=== PATIENT | female | born 1960 | race Caucasian/White ===

== ENCOUNTER 2019-10-28 14:29 | Observation (INO) | payer OTHER, SELFPAY ==
--- NOTE | ~2019-10-28 | XR_ITS ---
EXAMINATION: XR foot RT min 3V DATE: 10/29/2019 18:03 INDICATION: Right foot pain. TECHNIQUE: 4 views of right foot were obtained. COMPARISON: None. FINDINGS: There is an oblique intra-articular fracture of base of fifth metatarsal with 2 mm displace ment. There is a dorsal exostosis at the neck of third metatarsal. There is mild osteoarthritis of ta lonavicular joint, first metatarsophalangeal joint, and second proximal interphalangeal joint. There is an enthesophyte at plantar aspect of calcaneal tuberosity. IMPRESSION: 1. Fracture of base of fifth metatarsal. Reviewed, dictated and finalized at location A.
--- NOTE | ~2019-10-28 | XR_ITS ---
EXAMINATION: XR ankle RT min 3V DATE: 10/29/2019 18:03 INDICATION: Right ankle pain. Fall. TECHNIQUE: 4 views of right ankle were obtained. COMPARISON: None. FINDINGS: There is an oblique intra-articular fracture of base of fifth metatarsal. There is mild ost eoarthritis of talonavicular joint. There is heterotopic ossification distal to medial malleolus, lik treasure from old injury. There is an enthesophyte at plantar aspect of calcaneal tuberosity. Ankle soft t issue swelling is noted. IMPRESSION: 1. Fracture of base of fifth metatarsal. Reviewed, dictated and finalized at location A.
--- NOTE | ~2019-10-28 | XR_ITS ---
EXAMINATION: XR surgery orthopedic DATE: 10/29/2019 17:17 INDICATION: Trimalleolar left ankle fracture. TECHNIQUE: 7 intraoperative fluoroscopic views of left ankle were obtained. I was not present. Fluoro scopy exposure time was 107 seconds. COMPARISON: Left ankle radiographs 10/28/2019 FINDINGS: There is an oblique fracture of distal fibula in near-anatomic alignment status post open r eduction internal fixation with semitubular plate and screws and interfragmentary screw. There is a t ransverse fracture of medial malleolus in near-anatomic alignment status post open reduction internal fixation with lag screw. There is a nondisplaced fracture of posterior malleolus. There is mild oste oarthritis of talonavicular joint. IMPRESSION: 1. Trimalleolar ankle fracture status post open reduction internal fixation of distal fibula and medi al malleolus. Reviewed, dictated and finalized at location A. IMPRESSION: 1. Trimalleolar ankle fracture status post open reduction internal fixation of distal fibula and medial malleolus.
--- NOTE | ~2019-10-28 | XR_ITS ---
XR ankle LT min 3V, XR foot LT min 3V 10/28/2019 15:11 Indication: Left foot and ankle pain after fall Procedure: 4 views left ankle and 4 views left foot Comparison: No prior studies for comparison. Findings: There is displaced trimalleolar fracture. Talar dome within normal limits. Prominent degene rative calcaneal enthesophyte. Mild osteoarthritis of the midfoot. The Lisfranc joint intact. Impression: 1: Displaced trimalleolar fracture. Reviewed, dictated and finalized at location B. Impression: 1: Displaced trimalleolar fracture. Impression: 1: Displaced trimalleolar fracture.
--- NOTE | ~2019-10-28 | XR_ITS ---
EXAMINATION: XR ankle LT 2V DATE: 10/28/2019 16:50 INDICATION: Left ankle fracture status post reduction. TECHNIQUE: 2 views of left ankle were obtained. COMPARISON: Left ankle radiographs at 2:57 PM FINDINGS: There is a transverse fracture of medial malleolus. The distal fracture fragment demonstrat es 3 mm lateral displacement. There is an oblique fracture of distal fibula. The distal fracture frag ment demonstrates 4 mm posterior displacement. There is a nondisplaced fracture of posterior malleolu s. There is mild osteoarthritis of talonavicular joint. There is an enthesophyte at plantar aspect of calcaneal tuberosity. Cast material is noted. IMPRESSION: 1. Trimalleolar ankle fracture with improvement in alignment. Reviewed, dictated and finalized at location A.
--- NOTE | ~2019-10-28 | XR_ITS ---
EXAMINATION: XR chest 2V DATE: 10/28/2019 18:10 INDICATION: Preop. TECHNIQUE: Frontal and lateral views of the chest were obtained. COMPARISON: Chest 2 views 12/31/2015 FINDINGS: The chest demonstrates clear lungs without pneumonia, pleural effusion, or pneumothorax. Th e heart size is normal. IMPRESSION: 1. No acute cardiopulmonary disease. Reviewed, dictated and finalized at location A.
[2019-10-28 14:49] VITALS: BP 134/85; PULSE 75; RESP 18; TEMP 36.2; O2SAT 100
--- NOTE | 2019-10-28 15:02 | ED.LOWEXIN ---
HPI - Extremity Injury (Lower) General Chief Complaint: Extremity Injury, Lower Stated Complaint: ankle injury Time Seen by Provider: 10/28/19 14:47 History of Present Illness HPI Narrative: Patient is a 59-year-old female who presents ER with left ankle pain. Was stepping down off of something while doing yard work just when her ankle turned and pop. Unable to bear weight. No numbness or tingling. Related Data Home Medications Medication Instructions Recorded Confirmed bupropion HCl 75 mg PO TID 10/28/19 Allergies Allergy/AdvReac Type Severity Reaction Status Date / Time No Known Allergies Allergy Unverified 10/28/19 15:52 Review of Systems Review of Systems: All systems reviewed & are unremarkable except as noted in HPI and below Musculoskeletal: Musculoskeletal: Reports arthralgias and Reports joint swelling Neurologic: Denies focal weakness and Denies numbness PMFSH Past Medical History Medical History (Updated 10/28/19 @ 19:26 by Yoel Mckee MD) Depression Surgical History Surgical History (Updated 10/28/19 @ 19:24 by Yoel Mckee MD) No history of previous surgery Social History Social History (Updated 10/28/19 @ 19:25 by Yoel Mckee MD) Smoking status: Never smoker Gender identity (if verbalized by the patient): Female Exam Narrative: Exam Narrative: GENERAL: Well-appearing, well-nourished, and in no acute distress. HEAD: Normocephalic, atraumatic. ENT: Mucous membranes moist. HEART: Regular rate and rhythm. No murmur heard. Normal peripheral pulses. EXTREMITIES: Focused exam of the left ankle reveals deformity with tenderness over bilateral malleoli with swelling and bruising. Intact dorsalis pedis pulse and posterior tibial pulse. No sensory deficit. SKIN: Warm, dry, no rash. NEURO: Alert and oriented x3. PSYCH: Normal mood and affect. Course Course Emergency Course: Discussed with Dr. Richards. Recommends admission to the hospitalist service so they can go to the OR in the morning. Vital Signs Vital signs: Vital Signs Temperature 97.1 F L 10/28/19 14:49 Pulse Rate 75 10/28/19 14:49 Respiratory Rate 18 10/28/19 14:49 Blood Pressure 134/85 10/28/19 14:49 Pulse Oximetry 100 10/28/19 14:49 Temperature 97.1 F L 10/28/19 14:49 Pulse Rate 68 10/28/19 17:29 Respiratory Rate 16 10/28/19 17:29 Blood Pressure 134/79 10/28/19 17:29 Pulse Oximetry 100 10/28/19 17:29 Procedures Orthopedic Fracture Reduction Fracture #1: Fracture Reduction date: 10/28/19 Fracture Reduction time: 16:27 Time Out Performed: Yes Side: right Fracture Reduction Location: tibia and fibula Analgesia: other (dilaudid 1mg) Pre-Procedure Neuro Vascular Exam: normal Technique: direct manipulation Post Reduction X-rays Demonstrate: acceptable reduction Post-reduction neuro exam: intact Post-reduction vascular exam: intact Splint Applied: Yes Patient Tolerated Procedure: well Orthopedic Splinting/Casting Injury #1: Splinting/Casting Date: 10/28/19 Splinting/Casting Time: 16:28 Side: left Lower Extremity Injury Location: ankle Lower Extremity Immobilizer: posterior splint and stirrup splint Splint: customized in ED Pre-Procedure Neuro Vascular Exam: normal Post-Procedure Neuro Vascular Exam: normal Other Orthopedic Equipment: crutches MDM - Extremity Injury (Lower) Imaging Data Radiologist's impression: ITS Impressions Ankle X-Ray 10/28/19 15:15 Impression: 1: Displaced trimalleolar fracture. Foot X-Ray 10/28/19 15:15 Impression: 1: Displaced trimalleolar fracture. Ankle X-Ray 10/28/19 16:51 IMPRESSION: 1. Trimalleolar ankle fracture with improvement in alignment. ECG Data EKG #1: ECG completion date: 10/28/19 ECG completion time: 18:50 EKG Interpretatio
[2019-10-28] MEDS: HYDROmorphone HCL INJ (*CRX) 1 MG/ML SYR IV PUSH (16:16)
--- NOTE | 2019-10-28 16:18 | PC.NURSE ---
Pain med given IVP for pain control prior to left lower leg splint placement. Dr. Mckee at bedside to realign and assist with splint placement.
--- NOTE | 2019-10-28 16:34 | PC.NURSE ---
Radiology here for post reduction film.
[2019-10-28 17:29] VITALS: BP 134/79; PULSE 68; RESP 16; O2SAT 100
--- NOTE | 2019-10-28 17:29 | PC.NURSE ---
Pt resting with leg elevated on perez stand. Pain currently 03/23. Awaiting disposition.
--- NOTE | 2019-10-28 17:52 | ECG_ITS ---
Measurements Intervals [place] Rate: 60 P: 47 OR: 157 QRS: 45 QRSD: 89 T: 49 QT: 442 QTc: 444 Interpretive Statements SINUS RHYTHM NORMAL ECG Electronically Signed On 10-28-2019 19:14:46 CDT by Zaire Amador D.O.
--- NOTE | 2019-10-28 19:23 | PC.NURSE ---
Dr. Carter at bedside for exam. Attempt to call report to floor, floor unable to take at the present time.
[2019-10-28 19:38] LABS: Basophils Absolute Auto 0.1 K/mm3 (0.0-0.1); Basophils Percent Auto 0.5 % (0.2-1.2); Eosinophils Absolute Auto 0.1 K/mm3 (0-0.3); Eosinophils Percent Auto 0.7 % (0-4.4); Hematocrit 37.5 % (37.0-47.0); Hemoglobin 12.7 g/dL (12.0-15.0); Immature Granulocyte Absolute 0.02 K/mm3 (0.00-0.031); Immature Granulocyte Percent A 0.2 % (0-0.5); Lymphocytes Absolute Auto 2.21 K/mm3 (0.9-3.2); Lymphocytes Percent Auto 21.7 % (18.3-44.2); Mean Corpuscular HGB Conc 33.9 g/dl (32-36); Mean Corpuscular Volume 100.3 fl (80-100); Mean Platelet Volume 9.1 fl (7.4-10.4); Monocytes Absolute Auto 0.6 K/mm3 (0.1-0.6); Monocytes Percent Auto 5.9 % (2.6-8.5); Neutrophils Absolute Auto 7.2 K/mm3 (1.3-6.7); Platelet Count Result 266 k/mm3 (150-375); Red Blood Count 3.74 M/mm3 (4.2-5.4); Red Cell Distribution Width 12.2 % (11.5-14.5); White Blood Count 10.2 K/mm3 (4.5-10.0)
[2019-10-28 19:40] VITALS: BP 151/86; PULSE 69; RESP 16; TEMP 36.6; O2SAT 94; BMI 26.6
--- NOTE | 2019-10-28 19:41 | PM.IMHP ---
H&P: HPI History of Present Illness Date/Time: 10/28/19 19:41 Chief complaint: Trimalleolar fracture Narrative: This is a pleasant 59 year old female who was previously healthy presented to the hospital with a complaint of falling in the yard today and suffering a left ankle injury. The patient was walking across a small bridge when she stepped down and her left foot rolled and she heard a pop and immediately felt severe pain of her left ankle. She could not bear any weight or ambulate. She denies any other symptoms. The patient was evaluated in the ER and found to have a displaced left trimalleolar fracture. Her fracture was reduced in the ER and splint was placed. Ortho was consulted and has asked that we admit the patient for them. Review of Systems Review of Systems: All systems reviewed & are unremarkable except as noted in HPI and below PMFSH Past Medical History Medical History Anxiety Depression Surgical History Surgical History Hx of tonsillectomy No history of previous surgery Family History Family History Father Hypertension Abnormal cholesterol test Mother Diverticulosis Social History Social History Smoking status: Never smoker Alcohol intake: current Substance use: never Gender identity (if verbalized by the patient): Female Spiritual care concerns: No Comments Family medical history is reviewed and noncontributory. Meds Home Medications and Allergies Home Medications Medication Instructions Recorded Confirmed Type Adult One Daily Multivitamin 0.4 mg PO DAILY 10/28/19 10/28/19 History bupropion HCl 300 mg PO DAILY 10/28/19 10/28/19 History acetaminophen 1,000 mg PO Q6H #60 tablet 10/30/19 Rx aspirin [Children's Aspirin] 81 mg PO BID #90 tablet 10/30/19 Rx oxycodone 5 mg PO Q4H #40 tablet 10/30/19 Rx polyethylene glycol 3350 [Miralax] 17 g PO QAM #30 ea 10/30/19 Rx sennosides-docusate sodium 2 tab PO BID #60 tablet 10/30/19 Rx [Senokot-S] Allergies Allergy/AdvReac Type Severity Reaction Status Date / Time No Known Allergies Allergy Unverified 10/28/19 15:52 Vital Signs Vital Signs - 24 hr 10/28/19 14:49 10/28/19 17:29 Temperature 36.2 C L Pulse Rate 75 68 Respiratory Rate 18 16 Blood Pressure 134/85 134/79 Pulse Oximetry 100 100 Exam Const: General: cooperative, no acute distress, alert and awake Nutritional Appearance: well nourished Orientation/consciousness: patient oriented x3 HENMT: Head: normal to inspection General nose exam: Normal external nose present Face and sinus: normal facial exam Mouth: Yes Normal oral and palatal mucosa present and Yes oropharynx normal Eyes: Pupils: Equal, round and reactive pupils present EOM: EOMs intact bilaterally Neck: Neck: supple and no JVD Thyroid: thyroid normal Lymphatic: lymphadenopathy not noted Resp: Effort & Inspection: normal respiratory effort Auscultation: clear to auscultation bilaterally Cardio: Rate: regular rate Rhythm: regular rhythm Heart sounds: no murmurs GI: Inspection: normal to inspection Auscultation: normal bowel sounds Skin: General skin exam: normal color and no rashes or lesions noted Neuro: General: patient oriented x3 Cranial nerves: Yes CN's II-XII intact bilaterally and Yes Equal, round and reactive pupils present Speech: normal speech Motor exam (neuro): 5/5 motor strength present throughout Sensory Exam: normal sensation Extrem: General: normal to inspection and no edema Left lower extremity: lower leg and ankle (LLE + foot in splint++ ) Psych: Mental Status: mental status grossly normal Affect: normal affect H&P: Results Imaging ankle xray: Radiologist's impression: 1: Displaced trimalleolar fracture. Assessment and P
[2019-10-28 19:48] LABS: Prothrombin Time 12.7 Seconds (11.1-14.7)
[2019-10-28 19:49] LABS: Partial Thromboplastin Time 23.9 SECONDS (22.3-36.8)
[2019-10-28 19:50] LABS: Anion Gap 8 mmol/L (8-16); Blood Urea Nitrogen 18 mg/dL (7-17); Carbon Dioxide 28 mmol/L (22-30); Chloride 98 mmol/L (98-107); Estimated CRCL calculation 73 ml/min; Estimated Glomerular Filt Rate > 60; Glucose 118 mg/dL (65-105); Potassium 4.1 mmol/L (3.4-5.0); Sodium 134 mmol/L (137-145)
[2019-10-28] MEDS: MORPHINE SULFATE (*CRX) 4 MG/ML INJ IV PUSH ×2 (20:26→23:38)
[2019-10-28] MEDS: ONDANSETRON INJ 4 MG/2 ML VIAL IV PUSH (20:28)
[2019-10-28] MEDS: SODIUM CHLORIDE 0.9% IV 1,000 ML 125 ML IV CONT (20:30)
--- NOTE | 2019-10-28 20:34 | ADMGEN ---
This patient, Martha Mays, was admitted to [facility] Surg Room 324-01. Patient/family oriented to hospital policies and general routines including ID bracelet, bed and alarms, visiting hours, pain management, procedures, bathroom and other care routines, personal items, smoking policy, room service/diet, and visiting hours. Valuables list has been completed. Information on how to activate the Rapid Response Team has been discussed. Patient/Family are encouraged to report perceived risks to care and to ask questions if they do not understand what they are told or what they should do.
[2019-10-28] MEDS: HYDROcodone/acetaminophen (*CRX) 5-325 MG TABLET 1 TAB PO (21:17)
[2019-10-28] MEDS: LORazepam (*CRX) 0.5 MG TABLET PO (22:20)
[2019-10-29] VITALS (14 sets, daily range): BP systolic 105–168; BP diastolic 43–131; PULSE 61–92; RESP 8–20; TEMP 36.6–37.4; O2SAT 92–100
[2019-10-29] MEDS: HYDROcodone/acetaminophen (*CRX) 5-325 MG TABLET 1 TAB PO ×2 (01:08→08:41)
[2019-10-29] MEDS: MORPHINE SULFATE (*CRX) 4 MG/ML INJ IV PUSH ×5 (02:12→13:04)
[2019-10-29] MEDS: SODIUM CHLORIDE 0.9% IV 1,000 ML 125 ML IV CONT ×2 (04:41→12:40)
[2019-10-29 06:37] LABS: Basophils Absolute Auto 0.1 K/mm3 (0.0-0.1); Basophils Percent Auto 0.9 % (0.2-1.2); Eosinophils Absolute Auto 0.1 K/mm3 (0-0.3); Eosinophils Percent Auto 1.6 % (0-4.4); Hematocrit 33.1 % (37.0-47.0); Hemoglobin 11.1 g/dL (12.0-15.0); Immature Granulocyte Absolute 0.02 K/mm3 (0.00-0.031); Immature Granulocyte Percent A 0.3 % (0-0.5); Lymphocytes Absolute Auto 2.76 K/mm3 (0.9-3.2); Lymphocytes Percent Auto 39.7 % (18.3-44.2); Mean Corpuscular HGB Conc 33.5 g/dl (32-36); Mean Corpuscular Hemoglobin 33.3 pg (26-34); Mean Corpuscular Volume 99.4 fl (80-100); Monocytes Absolute Auto 0.6 K/mm3 (0.1-0.6); Monocytes Percent Auto 7.9 % (2.6-8.5); Neutrophils Absolute Auto 3.5 K/mm3 (1.3-6.7); Neutrophils Percent Auto 49.6 % (45.5-73.1); Platelet Count Result 223 k/mm3 (150-375); Red Blood Count 3.33 M/mm3 (4.2-5.4); Red Cell Distribution Width 11.7 % (11.5-14.5)
[2019-10-29 06:53] LABS: Anion Gap 5 mmol/L (8-16); Blood Urea Nitrogen 11 mg/dL (7-17); Calcium 8.3 mg/dL (8.4-10.2); Carbon Dioxide 29 mmol/L (22-30); Chloride 101 mmol/L (98-107); Estimated CRCL calculation 73 ml/min; Estimated Glomerular Filt Rate > 60; Glucose 102 mg/dL (65-105); Potassium 3.8 mmol/L (3.4-5.0); Sodium 135 mmol/L (137-145)
--- NOTE | 2019-10-29 07:32 | PC.NURSE ---
This nurse didn't realize the previous nurse had not logged out from the mobile computer and ended up charting the admission under her name. The admission assessment was done by this nurse.
--- NOTE | 2019-10-29 07:34 | PM.CNOR ---
Assessment and Plan Additional Plan 59 year female has a displaced left trimalleolar ankle fracture. This is a fracture of necessity needs to be fixed with ORIF. Dr. Richards discussed the surgical procedure as well as risks and complications with the patient. She has been NPO today. We will plan to proceed to the OR later this afternoon. We will plan to keep her overnight for IV antibiotics well as pain control planned to send her tomorrow. Will check a 25 hydroxy vitamin-D level. <MATTHEW Victoria - Last Filed: 10/29/19 07:42> History of Present Illness HPI Consult date: 10/29/19 <MATTHEW Victoria - Last Filed: 10/29/19 07:42> 10/29/19 <Dima Richards MD - Last Filed: 10/29/19 15:15> Chief complaint: Trimalleolar fracture <MATTHEW Victoria - Last Filed: 10/29/19 07:42> [facility] Past Medical History Medical History: Medical History Anxiety Depression <MATTHEW Victoria - Last Filed: 10/29/19 07:42> Surgical History Surgical History: Surgical History Hx of tonsillectomy No history of previous surgery <MATTHEW Victoria - Last Filed: 10/29/19 07:42> Family History Family History: Family History Father Hypertension Abnormal cholesterol test Mother Diverticulosis <MATTHEW Victoria - Last Filed: 10/29/19 07:42> Social History Social History: Social History Smoking status: Never smoker Alcohol intake: current Substance use: never Gender identity (if verbalized by the patient): Female Spiritual care concerns: No <MATTHEW Victoria - Last Filed: 10/29/19 07:42> Meds Home Medications and Allergies Home medications: Home Medications Medication Instructions Recorded Confirmed Type bupropion HCl 300 mg PO DAILY 10/28/19 10/28/19 History multivit with min-folic acid 0.4 mg PO DAILY 10/28/19 10/28/19 History [Adult One Daily Multivitamin] <MATTHEW Victoria - Last Filed: 10/29/19 07:42> Allergies/Adverse reactions: Allergies Allergy/AdvReac Type Severity Reaction Status Date / Time No Known Allergies Allergy Unverified 10/28/19 15:52 <MATTHEW Victoria Last Filed: 10/29/19 07:42> Vital Signs Vital Signs - 24 hr 10/28/19 14:49 10/28/19 17:29 10/28/19 19:40 Temperature 36.2 C L 36.6 C Pulse Rate 75 68 69 Respiratory Rate 18 16 16 Blood Pressure 134/85 134/79 151/86 H Pulse Oximetry 100 100 94 10/29/19 04:00 10/29/19 06:00 Temperature 36.6 C 36.6 C Pulse Rate 68 68 Respiratory Rate 16 16 Blood Pressure 116/62 116/62 Pulse Oximetry 92 92 <MATTHEW Victoria - Last Filed: 10/29/19 07:42> Exam Narrative: Exam Narrative: 59-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 She had immediate pain in the left ankle. She was brought to the emergency room here at [facility]. X-rays showed displaced left trimalleolar ankle fracture. She was placed into a posterior OCL splint and admitted for surgical ORIF of the ankle. On physical exam she is a 59-year-old female further was no distress. She has a OCL splint left ankle. She complains of no numbness or tingling the toes. There is minimal to no swelling in the toes. She is able wiggle her toes with minimal discomfort. She complains of no pain or discomfort in her right lower extremity or either upper extremities. <MATTHEW Victoria - Last Filed: 10/29/19 07:42> Extrem: Left lower extremity: normal capillary refill <MATTHEW Victoria Last Filed: 10/29/19 07:42> Results Labs Result Diagrams: : 10/29/19 06:13 10/29/19 06:13 <MATTHEW Victoria - Last Filed: 10/29/19 07:42> Labs: Abnormal lab results
--- NOTE | 2019-10-29 07:47 | PC.NURSE ---
This nurse gave the 2025 dose of Morphine 4mg IVP.
--- NOTE | 2019-10-29 13:38 | PC.NURSE ---
Pt to surgery at this time
--- NOTE | 2019-10-29 13:48 | WPDANESEPPF ---
Anes - Initial Pre Proc Eval Procedure: Operation Date: 10/29/19 15:30 Proposed Procedures p Open Reduction Internal Fixation Left Trimalleolar Ankle Fracture without Fixation Posterior Lip - Dima Richards MD Date/Time: 10/29/19 13:48 Surgeon: Carson Casas MD Pre Op Diagnosis: Trimalleolar fracture Patient Data Age: 59 Gender: F Height: 5 ft 7 in Weight: 77.3 kg Last Vital Signs Temp 36.6 C 10/29/19 06:00 Pulse 68 10/29/19 06:00 Resp 16 10/29/19 06:00 BP 116/62 10/29/19 06:00 Pulse Ox 92 10/29/19 06:00 Allergies Allergy/AdvReac Type Severity Reaction Status Date / Time No Known Allergies Allergy Unverified 10/28/19 15:52 Home Medications Medication Instructions Recorded Confirmed Type bupropion HCl 300 mg PO DAILY 10/28/19 10/28/19 History multivit with min-folic acid 0.4 mg PO DAILY 10/28/19 10/28/19 History [Adult One Daily Multivitamin] Laboratory Tests 10/28/19 10/28/19 10/28/19 19:29 19:29 19:29 WBC 10.2 K/mm3 H K/mm3 (4.5-10.0) RBC 3.74 M/mm3 L M/mm3 (4.2-5.4) Hgb 12.7 g/dL g/dL (12.0-15.0) Hct 37.5 % % (37.0-47.0) MCV 100.3 fl H fl (80-100) MCH 34.0 pg pg (26-34) MCHC 33.9 g/dl g/dl (32-36) RDW 12.2 % % (11.5-14.5) Plt Count 266 k/mm3 k/mm3 (150-375) MPV 9.1 fl fl (7.4-10.4) Immature Gran % (Auto) 0.2 % % (0-0.5) Neut % (Auto) 71.0 % % (45.5-73.1) Lymph % (Auto) 21.7 % % (18.3-44.2) [place] % (Auto) 5.9 % % (2.6-8.5) Eos % (Auto) 0.7 % % (0-4.4) Baso % (Auto) 0.5 % % (0.2-1.2) Lymph # (Auto) 2.21 K/mm3 K/mm3 (0.9-3.2) [place] # (Auto) 0.6 K/mm3 K/mm3 (0.1-0.6) Eos # (Auto) 0.1 K/mm3 K/mm3 (0-0.3) Baso # (Auto) 0.1 K/mm3 K/mm3 (0.0-0.1) Abs Immat Gran (auto) 0.02 K/mm3 K/mm3 (0.00-0.031) Absolute Neuts (auto) 7.2 K/mm3 H K/mm3 (1.3-6.7) Absolute Nucleated RBC 0.0 K/mm3 K/mm3 (0.0-0.012) Nucleated RBC % 0.0 % % (0.0-0.2) PT 12.7 Seconds Seconds (11.1-14.7) INR 1.0 APTT 23.9 SECONDS SECONDS (22.3-36.8) Sodium 134 mmol/L L mmol/L (137-145) Potassium 4.1 mmol/L mmol/L (3.4-5.0) Chloride 98 mmol/L mmol/L (98-107) Carbon Dioxide 28 mmol/L mmol/L (22-30) Anion Gap 8 mmol/L mmol/L (8-16) BUN 18 mg/dL H mg/dL (7-17) Creatinine 0.70 mg/dL mg/dL (0.7-1.0) Estim Creat Clear Calc 73 ml/min ml/min Estimated GFR > 60 (59 - ) Glucose 118 mg/dL H mg/dL (65-105) Calcium 9.0 mg/dL mg/dL (8.4-10.2) Vitamin D 25-Hydroxy 10/29/19 10/29/19 10/29/19 06:13 06:13 08:17 WBC 7.0 K/mm3 K/mm3 (4.5-10.0) RBC 3.33 M/mm3 L M/mm3 (4.2-5.4) Hgb 11.1 g/dL L g/dL (12.0-15.0) Hct 33.1 % L % (37.0-47.0) MCV 99.4 fl fl (80-100) MCH 33.3 pg pg (26-34) MCHC 33.5 g/dl g/dl (32-36) RDW 11.7 % % (11.5-14.5) Plt Count 223 k/mm3 k/mm3 (150-375) MPV 9.0 fl fl (7.4-10.4) Immature Gran % (Auto) 0.3 % % (0-0.5) Neut % (Auto) 49.6 % % (45.5-73.1) Lymph % (Auto) 39.7 % % (18.3-44.2) [place] % (Auto) 7.9 % % (2.6-8.5) Eos % (Auto) 1.6 % % (0-4.4) Baso % (Auto) 0.9 % % (0.2-1.2) Lymph # (Auto) 2.76 K/mm3 K/mm3 (0.9-3.2) [place] # (Auto) 0.6 K/mm3 K/mm3 (0.1-0.6) Eos # (Auto) 0.1 K/mm3 K/mm3 (0-0.3) Baso # (Auto) 0.1 K/mm3 K/mm3 (0.0-0.1) Abs Immat Gran (auto) 0.02 K/mm3 K/mm3 (0.00-0.031) Absolute Neuts (auto) 3.5 K/mm3 K/mm3 (1.3-6.7) Absolute Nucleated RBC 0.0 K/mm3 K/mm3 (0.0-0.012) Nucl
--- NOTE | 2019-10-29 15:11 | WPDHPUPDATE1 ---
History and Physical Update Update Date/Time: 10/29/19 15:11 History and Physical has been reviewed, including an updated exam of the patient. There are NO changes in the patient's condition. Risks, benefits, and alternatives have been discussed and questions answered. Patient agrees to proceed with procedure. Mild to mod swelling but soft. Transverse eschar medial to medial mtaphyseal edge of tibia. Pt has mild swelling ant lat right rajendra and greatest tenderness over anterior process calcaneus. Will get xrays right foot and ankle .
[2019-10-29] MEDS: ceFAZolin 2 GM/D5W 50 ML 2 GM/50 ML BAG IVPB (15:18)
--- NOTE | 2019-10-29 15:25 | PM.IMPN ---
Progress Note: A&P Assessment and Plan (1) Depression: Qualifiers: Depression Type: unspecified Qualified Code(s): F32.9 - Major depressive disorder, single episode, unspecified Code(s): F32.9 - Major depressive disorder, single episode, unspecified Status: Chronic Assessment and Plan: Continue buproprion. (2) Closed trimalleolar fracture of ankle: Qualifiers: Encounter type: initial encounter Laterality: left Qualified Code(s): S82.852A - Displaced trimalleolar fracture of left lower leg, initial encounter for closed fracture Code(s): S82.853A - Displaced trimalleolar fracture of unspecified lower leg, initial encounter for closed fracture Status: Acute Assessment and Plan: Orthopedics Consulted. Medically cleared for surgery yesterday. Pain control. Pt is in OR. Subjective Date/time seen: 10/29/19 15:25 Interval history: 59 year female has a displaced left trimalleolar ankle fracture. History of depression, other no medical history. Pt is not in her room. Pt is down in OR. spoke to her in the room. Pt is having ORIF today under orthopedic team. Review of Systems Review of Systems: ROS unobtainable: Yes other (Pt is in OR) Exam Narrative: Exam Narrative: Pt not at bedside, pt is in OR Objective Data Vital Signs Vital Signs: Vital Signs - 24 hr 10/28/19 17:29 10/28/19 19:40 10/29/19 04:00 Temperature 36.6 C 36.6 C Pulse Rate 68 69 68 Respiratory Rate 16 16 16 Blood Pressure 134/79 151/86 H 116/62 Pulse Oximetry 100 94 92 10/29/19 06:00 10/29/19 13:55 Temperature 36.6 C 37.4 C Pulse Rate 68 77 Respiratory Rate 16 16 Blood Pressure 116/62 125/70 Pulse Oximetry 92 99 Intake/Output Intake/Output: Intake & Output 10/26/19 10/27/19 10/28/19 10/29/19 23:59 23:59 23:59 23:59 Intake Total 100 2890 Output Total 2200 Balance 100 690 Meds/Results Medications: Active Medications Generic Name Dose Route Start Last Admin Trade Name Freq PRN Reason Stop Dose Admin Hydrocodone Bitart/Acetaminophen 1 tab 10/28/19 17:52 10/29/19 08:41 [place] 5-325 Mg PO 1 tab Q4H PRN Administration Pain Rated 4-6 Fentanyl Citrate 25 mcg 10/29/19 13:48 Sublimaze IV PUSH Q2M PRN Pain Acetaminophen 1,000 mg in 100 mls @ 400 mls/hr 10/28/19 17:52 10/28/19 22:34 Ofirmev 1,000 Mg Ivpb IVPB 10/29/19 17:53 Infused Q6H PRN Infusion Mild Pain (1-3) or Fever Sodium Chloride 1,000 mls @ 125 mls/hr 10/28/19 17:55 10/29/19 12:40 Normal Saline Iv IV CONT 125 mls/hr .Q8H KUSUM Administration Lactated Ringer's 1,000 mls @ 30 mls/hr 10/29/19 13:50 Lr - Lactated Ringers Iv IV CONT .Q24H KUSUM Morphine Sulfate 4 mg 10/28/19 17:52 10/29/19 13:04 Morphine Sulfate Inj (*Crx) IV PUSH 4 mg Q2H PRN Administration Pain Rated 7-10 Ondansetron HCl 4 mg 10/28/19 17:52 10/28/19 20:28 Zofran Inj IV PUSH 4 mg Q4H PRN Administration Nausea Ondansetron HCl 4 mg 10/29/19 13:48 Zofran Inj IV PUSH ONCE PRN Nausea Radiology Results: ITS Impressions Foot X-Ray 10/28/19 15:15 Impression: 1: Displaced trimalleolar fracture. Ankle X-Ray 10/28/19 16:51 IMPRESSION: 1. Trimalleolar ankle fracture with improvement in alignment. Chest X-Ray 10/28/19 18:12 IMPRESSION: 1. No acute cardiopulmonary disease. Labs Labs: Laboratory Results - last 24 hr 10/28/19 10/28/19 10/28/19 19:29 19:29 19:29 WBC 10.2 H RBC 3.74 L Hgb 12.7 Hct 37.5 MCV 100.3 H MCH 34.0 MCHC 33.9 RDW 12.2 Plt Count 266 MPV 9.1 Immature Gran % (Auto) 0.2 Neut % (Auto) 71.0 Lymph % (Auto) 21.7 Park % (Auto) 5.9 Eos % (Auto) 0.7 Baso % (Auto) 0.5 Lymph # (Auto) 2.21 Park # (Auto) 0.6 Eos # (Auto) 0.1 Baso # (Auto) 0.1 Abs Immat Gran (auto) 0.02 Absolute Neuts (auto) 7.2 H Absolute
--- NOTE | 2019-10-29 16:44 | SUR.OPER ---
Dr. Richards made aware of 1 hour tourniquet time
--- NOTE | 2019-10-29 17:16 | P.OP_ITS ---
Procedure Note - Detailed Date of procedure: 10/29/19 Pre-op diagnosis: Trimalleolar fracture Post-op diagnosis: same Procedure performed: Open reduction internal fixation left trimalleolar ankle fracture without fixation of posterior lip Description of procedure: patient was brought to the operating room and general anesthesia was administered. A bump was placed on the left buttock and under the left distal thigh and the left ankle prepped draped usual fashion. All the skin was covered with Ioban. A 4 in incision was made over the lateral malleolus. We identified the superficial branch of peroneal nerve which was crossing the distal fibular shaft just proximal to the fracture site from posterior to anterior and we had to mobilize this proximally so it could be retracted anterior to the distal shaft as well. Great care was taken with this nerve during the procedure and was intact after the plating. Hematoma was removed and anatomic reduction was achieved with 2 towel clips style bone clamps. A single 2.7 mm cortical screw was placed through anterior gliding hole for interfragmentary compression. A 5 hole 1/3 tubular plate was contoured such that we would have 2 cancellous screws in the lateral malleolus fragment and 3 cortical screws in the proximal fragment. Perfect anatomic reduction was maintained. A 2 in longitudinal incision was made centered over the medial malleolus fracture. Periosteum was removed from the fracture site hematoma evacuated. There was a tiny chip of comminution anteriorly. This was removed. The medial malleolus consisted of the anterior colliculus and the fracture line was prima rily transverse but slightly in the coronal plane proximal anterior distal posterior. We achieved an anatomic reduction which was held with a towel clip and a guidewire carefully placed perpendicular to the fracture. A 46 mm longer partially threaded for 0 Synthes cancellous screw was placed across the fracture site. It obtained excellent purchase and inter fragmentary compression. Final fluoroscopic pictures showed perfect reduction of the mortise and the medial malleolus and on the lateral view the small posterior malleolar lip fracture fragment rested perfectly in its anatomic position. Tourniquet was released prior to final fluoroscopic x-rays. Hemostasis was achieved. Wounds irrigated with antibiotic solution. Skin closed both incisions with 3 0 subcutaneous Vicryl in glue well-padded posterior splint was applied the patient transferred postop recovery in good condition. She received weight based vancomycin and 2 g of Ancef preoperatively. Implants: Synthes 1/3 tubular plate and screws, 4.0 cannulated screw Anesthesia: GLMA Surgeon: Dima Richards MD Glue Line Operator: . Blanka Drains: No Packing: No Pathology: none sent Complications: No immediate complications Condition: stable Disposition: PACU
[2019-10-29] MEDS: KETOROLAC 30 MG/ML VIAL (*BKC) IV PUSH (17:27)
--- NOTE | 2019-10-29 17:34 | SUR.OPER ---
Ebl=10ml
[2019-10-29] MEDS: LACTATED RINGERS 1,000 ML 30 ML IV CONT ×2 (17:41)
[2019-10-29] MEDS: fentaNYL CITRATE INJ (*CRX) 100 MCG/2 ML VIAL 25 MCG IV PUSH ×2 (17:59→18:08)
[2019-10-29] MEDS: ACETAMINOPHEN 500 MG TABLET 1000 MG PO (20:38)
[2019-10-29] MEDS: oxyCODONE HCL (*CRX) 5 MG TAB IR PO (20:38)
--- NOTE | 2019-10-29 22:44 | PC.NURSE ---
Patient was brought back from PACU at 1930 in bed.
[2019-10-30] MEDS: oxyCODONE HCL (*CRX) 5 MG TAB IR PO ×4 (00:31→13:42)
[2019-10-30 02:00] VITALS: BP 105/43; PULSE 69; RESP 20; TEMP 36.8; O2SAT 95
[2019-10-30] MEDS: ACETAMINOPHEN 500 MG TABLET 1000 MG PO ×3 (02:00→13:42)
[2019-10-30 06:00] VITALS: BP 115/47; PULSE 77; RESP 20; TEMP 36.8; O2SAT 98
--- NOTE | 2019-10-30 07:51 | PM.PNORT ---
Progress Note: A&P Additional Plan POD 1 alert pain is well controlled, xray of right foot shows 5th MT styloid fx-will treat this with cam boot, pt is able to WB on right leg with boot, splint on left is intact,wiggles toes, plan to send home today Subjective Subjective Date/Time Seen: 10/30/19 07:51 Objective Data Vital Signs Vital Signs: Vital Signs - 24 hr 10/29/19 13:55 10/29/19 17:41 10/29/19 17:50 Temperature 37.4 C 36.7 C Pulse Rate 77 61 91 Respiratory Rate 16 8 L 12 Blood Pressure 125/70 152/79 H 168/104 H Pulse Oximetry 99 99 100 10/29/19 17:55 10/29/19 18:10 10/29/19 18:25 Temperature 37.1 C 36.7 C Pulse Rate 82 83 92 Respiratory Rate 10 L 8 L 12 Blood Pressure 160/131 H 156/84 H 146/76 H Pulse Oximetry 100 95 10/29/19 18:40 10/29/19 18:55 10/29/19 19:10 Temperature 36.9 C 36.7 C 36.8 C Pulse Rate 92 90 85 Respiratory Rate 12 12 16 Blood Pressure 130/74 141/80 H 137/67 Pulse Oximetry 94 95 94 10/29/19 20:00 10/29/19 20:40 10/29/19 22:00 Temperature 36.8 C 36.6 C 36.8 C Pulse Rate 69 79 76 Respiratory Rate 20 20 20 Blood Pressure 105/43 L 122/65 118/70 Pulse Oximetry 95 95 96 10/30/19 02:00 10/30/19 06:00 Temperature 36.8 C 36.8 C Pulse Rate 69 77 Respiratory Rate 20 20 Blood Pressure 105/43 L 115/47 L Pulse Oximetry 95 98 Intake/Output Intake/Output: Intake & Output 10/27/19 10/28/19 10/29/19 10/30/19 23:59 23:59 23:59 23:59 Intake Total 100 3140 50 Output Total 2600 Balance 100 540 50 Meds/Results Medications: Active Medications Generic Name Dose Route Start Last Admin Trade Name Freq PRN Reason Stop Dose Admin Acetaminophen 1,000 mg 10/29/19 19:47 10/30/19 02:00 Tylenol Tablet PO 1,000 mg Q6H [facility] Administration Aspirin 81 mg 10/30/19 09:00 Aspirin Chewable PO 12/11/19 09:01 BID [facility] Bupropion HCl 300 mg 10/30/19 09:00 Wellbutrin Xl (24 Hr) PO DAILY [facility] Docusate Sodium 100 mg 10/30/19 09:00 Colace Capsule PO BID [facility] Cefazolin Sodium 1 gm in 50 mls @ 100 mls/hr 10/29/19 22:00 10/30/19 06:13 Ancef 1 Gm/D5w 50 Ml Pm IVPB 10/30/19 14:29 Infused Q8H [facility] Infusion Ketorolac Tromethamine 15 mg 10/30/19 00:00 Toradol Inj IM 10/30/19 12:01 Q6HR PRN Pain Rated 4-6 Magnesium Hydroxide 30 ml 10/29/19 19:47 Milk Of Magnesia PO BID PRN Constipation Multivitamins/Calcium 1 tablet 10/30/19 09:00 Therapeutic Multivitamins/Minerals PO DAILY [facility] Oxycodone HCl 5 mg 10/29/19 19:47 10/30/19 04:02 Roxicodone Ir Tablet PO 5 mg Q4H [facility] Administration Oxycodone HCl 5 mg 10/29/19 19:47 Roxicodone Ir Tablet PO Q4H PRN Pain Rated 7-10 Polyethylene Glycol 17 gm 10/30/19 09:00 Miralax PO QAM [facility] Senna/Docusate Sodium 2 tab 10/30/19 09:00 Senokot S Tablet PO BID [facility] Radiology Results: ITS Impressions Chest X-Ray 10/28/19 18:12 IMPRESSION: 1. No acute cardiopulmonary disease. Ankle X-Ray 10/29/19 18:05 IMPRESSION: 1. Fracture of base of fifth metatarsal. Foot X-Ray 10/29/19 18:07 IMPRESSION: 1. Fracture of base of fifth metatarsal. Intraoperative X-Ray 10/29/19 19:07 IMPRESSION: 1. Trimalleolar ankle fracture status post open reduction internal fixation of distal fibula and medial malleolus. Labs Labs: Laboratory Results - last 24 hr 10/29/19 08:17 Vitamin D 25-Hydroxy 45.0 Quality VTE Prophylaxis VTE prophylaxis: mechanical ordered
--- NOTE | 2019-10-30 08:02 | P.DS_ITS ---
DS: Admitting Diagnosis Admitting Diagnosis Admitting Diagnosis: Trimalleolar fracture DS: Summary Time Spent with Patient Time attestation: 59-year-old female who underwent ORIF of her left trimalleolar ankle fracture on 10/28. She underwent the procedure without any complications. Postoperatively she has been afebrile vital Signs was stable. She complains of no numbness or tingling in the left foot. She has a posterior OCL splint on which is intact comfortable for her. Pain is well controlled with scheduled Tylenol as well as oxycodone 5s for pain. She is on a baby aspirin twice a day for DVT proph ylaxis. She was complaining of additional pain in the right foot, x-rays were done which show a mildly displaced 5th metatarsal styloid fracture which we treated nonsurgically with a Cam walker boot. She will be allowed to be weight- bearing as tolerated in the boot. Otherwise patient is strict nonweightbearing on the left foot. She is advised keep leg elevated to prevent swelling in ankle. She will follow up Dr. Richards in approximately 12 days for re- evaluation. If she has any questions or concerns she should call the office. DS: Data Data Completed and Pending Labs on day of discharge: Labs from last 24 hours 10/29/19 08:17 Vitamin D 25-Hydroxy 45.0 Discharge Plan Discharge Attending physician on discharge: Carson Casas Consulting providers: Dima Richards Discharging Clinician: Jayden Moscoso Patient Disposition: Home, Self-Care Activity: follow weight bearing status Diet: as tolerated Wound Care Instructions: follow printed instructions Discharge Instructions: pt is to keep left leg elevated at home to prevent swelling, strict non-weight bearing on left leg. pt may WB on right foot with boot on, may remove boot when seated,when elevating left foot -no pressure on heel Patient Instructions: Antibiotic Form, Pain Management (DC) Stand Alone Forms: General Discharge Information Follow-up/Referrals: Dima Richards MD [Physician] - 11/11/19 Discharge Medications: New oxycodone 5 mg Tablet 5 mg PO Q4H Qty: 40 RF: 0 acetaminophen 500 mg Tablet 1,000 mg PO Q6H Qty: 60 RF: 0 aspirin [Children's Aspirin] 81 mg Tablet,Chewable 81 mg PO BID Qty: 90 RF: 0 sennosides-docusate sodium [Senokot-S] 8.6-50 mg Tablet 2 tab PO BID Qty: 60 RF: 0 polyethylene glycol 3350 [Miralax] 17 gram Powder In Packet 17 g PO QAM Qty: 30 RF: 0 Continued bupropion HCl 300 mg tablet extended release 24 hr 300 mg PO DAILY RF: 0 Adult One Daily Multivitamin 0.4 mg Tablet 0.4 mg PO DAILY RF: 0 Date of admission: 10/28/19 17:52 Primary Care Provider: Kiko Javier Admitting Provider: Carson Casas Attending physician on admission: Carson Casas Condition: Stable Quality VTE Prophylaxis VTE prophylaxis: mechanical ordered
[2019-10-30 10:00] VITALS: BP 100/54; PULSE 82; RESP 18; TEMP 36.6; O2SAT 100
[2019-10-30] MEDS: ASPIRIN 81 MG CHEWABLE TABLET PO (10:02)
[2019-10-30] MEDS: polyethylene glycoL 3350 17 GM POWD.PACK PO (10:03)
[2019-10-30] MEDS: DOCUSATE SODIUM 100 MG CAPSULE PO (10:03)
[2019-10-30] MEDS: THERAPEUTIC MULTIVITAMINS/MINERALS TAB (*BKC) 1 TABLET PO (10:03)
[2019-10-30] MEDS: buPROPion HCL XL (24 HR) 150 MG TABCR 300 MG PO (10:03)
[2019-10-30] MEDS: SENNA/DOCUSATE SODIUM TABLET 2 TAB PO (10:03)
--- NOTE | 2019-10-30 11:36 | PM.DS ---
DS: Admitting Diagnosis Admitting Diagnosis Admitting Diagnosis: Trimalleolar fracture DS: Discharge Diagnosis Discharge Diagnosis (1) Depression: Qualifiers: Depression Type: unspecified Qualified Code(s): F32.9 - Major depressive disorder, single episode, unspecified Code(s): F32.9 - Major depressive disorder, single episode, unspecified Status: Chronic Assessment and Plan: Stable, continue home meds. (2) Closed trimalleolar fracture of ankle: Qualifiers: Encounter type: initial encounter Laterality: left Qualified Code(s): S82.852A - Displaced trimalleolar fracture of left lower leg, initial encounter for closed fracture Code(s): S82.853A - Displaced trimalleolar fracture of unspecified lower leg, initial encounter for closed fracture Status: Acute Assessment and Plan: S/p ORIF. Stable doing well. DS: Summary Time Spent with Patient Time attestation: Total time spent providing and/or coordinating discharge services: Exam Narrative: Exam Narrative: Patient had mechanical fall presented to ED found to have L ankle fx. Const: General: no acute distress Nutritional Appearance: average body habitus HENMT: Head: normal to inspection Ears: hearing grossly normal bilaterally General nose exam: Normal external nose present Face and sinus: normal facial exam Mouth: Yes Normal oral and palatal mucosa present Eyes: Pupils: Equal, round and reactive pupils present EOM: EOMs intact bilaterally Neck: Neck: full ROM, no lymphadenopathy and no JVD Resp: Auscultation: clear to auscultation bilaterally Cardio: Jugular venous distension: no JVD Rate: regular rate Rhythm: regular rhythm Heart sounds: S1 normal heart sound present and S2 normal heart sound present GI: Inspection: normal to inspection GI Palp: Yes Soft to palpation Auscultation: normal bowel sounds Skin: Other: R ankle surgical wound. Neuro: General: patient oriented x3 Cranial nerves: Yes CN's II-XII intact bilaterally and Yes Equal, round and reactive pupils present Extrem: Other: R ankle surgical wound. DS: Data Data Completed and Pending Completed studies during hospitalization: B/L xr of both feet. Pending studies at discharge: N/A Procedures/Treatments: Patient underwent ORIF L ankle Imaging My impression: Displaced L trimalleolar fx. Discharge Plan Discharge Attending physician on discharge: Judy Keane V. Consulting providers: Dima Richards Discharging Clinician: Judy Keane V. Patient Disposition: Home, Self-Care Activity: follow weight bearing status Diet: as tolerated Wound Care Instructions: follow printed instructions Discharge Instructions: pt is to keep left leg elevated at home to prevent swelling, strict non-weight bearing on left leg. pt may WB on right foot with boot on, may remove boot when seated,when elevating left foot -no pressure on heel Patient Instructions: Antibiotic Form, Pain Management (DC) Stand Alone Forms: General Discharge Information Follow-up/Referrals: Dima Richards MD [Physician] - 11/11/19 Discharge Medications: New acetaminophen 500 mg Tablet 1,000 mg PO Q6H Qty: 60 RF: 0 aspirin [Children's Aspirin] 81 mg Tablet,Chewable 81 mg PO BID Qty: 90 RF: 0 polyethylene glycol 3350 [Miralax] 17 gram Powder In Packet 17 g PO QAM Qty: 30 RF: 0 sennosides-docusate sodium [Senokot-S] 8.6-50 mg Tablet 2 tab PO BID Qty: 60 RF: 0 oxycodone 5 mg Tablet 5 mg PO Q4H Qty: 40 RF: 0 Continued bupropion HCl 300 mg tablet extended release 24 hr 300 mg PO DAILY RF: 0 Adult One Daily Multivitamin 0.4 mg Tablet 0.4 mg PO DAILY RF: 0 Date of admission: 10/28/19 17:52 Primary Care Provider: Kiko Javier Admitting Provider: Carson Casas Discharge Date/Time: 10/30/19 16:18 Attending physician on admission: Carson Casas Condition: Stable Quality VTE Proph
[2019-10-30 12:33] VITALS: O2SAT 96
[2019-10-30 14:00] VITALS: BP 100/48; PULSE 73; RESP 18; TEMP 36.4; O2SAT 99
== END 2019-10-30 16:18 | disposition home or self-care (01) ==
LOC: ANHED 15:29 → ANH3MEDSUR 18:35
PROVIDERS: Family Medicine; Orthopaedic Surgery; Physician Assistant Surgical; Admitting Provider Family Medicine; Emergency Provider Emergency Medicine; PCP Family Medicine Adolescent Medicine; Visit Provider Family Medicine
PROC: (CPT 27822; principal; 2019-10-29 15:30)
DX: S82.852A Displaced trimalleolar fracture of left lower leg, initial encounter for closed fracture (principal); S92.354A Nondisplaced fracture of fifth metatarsal bone, right foot, initial encounter for closed fracture; X50.0XXA Overexertion from strenuous movement or load, initial encounter; F41.8 Other specified anxiety disorders; Z23 Encounter for immunization; Z79.82 Long term (current) use of aspirin
CPT/HCPCS: 27822; 27818; 36415; 71046; 73600; 73610; 73630; 80048; 82306; 85025; 85610; 85730; 90471; 90686; 93005; 96374; 96375; 96376; 97161; 99285; A9270; C1713; C1769; G0008; G0378; J0131; J0690; J1170; J1885; J2250; J2270; J2405; J3010; J3370; J7030; J7120

== ENCOUNTER 2019-12-17 09:57 | Outpatient (CLI) | payer OTHER, SELFPAY ==
--- NOTE | ~2019-12-17 | MM_ITS ---
EXAMINATION: MM screening pamela BI w edwina HISTORY: Screening TECHNIQUE: Craniocaudal and mediolateral oblique 3-D tomosynthesis images were obtained and synthetic 2-D images were generated. CAD analysis was submitted and interpreted. COMPARISON: Comparison to multiple prior studies sequentially, with oldest reviewed study dated 09/2013. BREAST PARENCHYMAL COMPOSITION: There are scattered areas of fibroglandular density. FINDINGS: There is no evidence of suspicious mass, calcification, or architectural distortion to sugg est malignancy in either breast. There has been no suspicious interval change. IMPRESSION: 1. No mammographic evidence of malignancy. 2. Recommend routine screening mammography in one year. BI-RADS Category 1: Negative Reviewed, dictated and finalized at location [facility]. [facility]
== END 2019-12-17 09:58 | disposition home or self-care (01) ==
LOC: ANHIMG 09:59
PROVIDERS: PCP Family Medicine Adolescent Medicine; Visit Provider Family Medicine Adolescent Medicine
DX: Z12.31 Encounter for screening mammogram for malignant neoplasm of breast (principal)
CPT/HCPCS: 77063; 77067